=== PATIENT | female | born 1930 | race Caucasian/White ===

== ENCOUNTER 2017-12-23 12:34 | Observation (INO) ==
[2017-12-23 17:47] LABS: Baso # (Auto) 0.1 th/mm3 (0.0-0.2); Baso % (Auto) 0.6 % (0.0-2.0); Eos # (Auto) 0.1 th/mm3 (0.0-0.4); Eos % (Auto) 0.7 % (0.0-4.0); Hematocrit 42.2 % (35.0-46.0); Hemoglobin 14.1 gm/dL (11.6-15.3); Lymph # (Auto) 1.3 th/mm3 (1.0-4.8); Lymph % (Auto) 14.2 % (9.0-44.0); Mean Corpuscular HGB Conc 33.4 % (32.0-36.0); Mean Corpuscular Hemoglobin 29.9 pg (27.0-34.0); Mean Corpuscular Volume 89.6 fL (80.0-100.0); Mean Platelet Volume 11.2 fL (7.0-11.0); Mono # (Auto) 0.8 th/mm3 (0.0-0.9); Mono % (Auto) 8.6 % (0.0-8.0); Neut # (Auto) 6.9 th/mm3 (1.8-7.7); Neut % (Auto) 75.9 % (16.0-70.0); Platelet Count 173 th/mm3 (150-450); Red Blood Count 4.72 mil/mm3 (4.00-5.30); Red Cell Distribution Width 15.1 % (11.6-17.2)
[2017-12-23] MEDS ORDERED: Diatrizoate Meglum/Diatrizoate Sod Liq 9 ML UDC ONE (17:52)
[2017-12-23 18:01] LABS: Alkaline Phosphatase 104 U/L (45-117); Total Protein 8.2 g/dL (6.4-8.2)
[2017-12-23 18:05] LABS: Activated Partial Thrombo Time 43.7 sec (24.3-30.1); Alanine Aminotransferase 22 U/L (10-53); Albumin 4.4 g/dL (3.4-5.0); Anion Gap 10 meq/L (5-15); Aspartate Aminotransferase 43 U/L (15-37); Blood Urea Nitrogen 24 mg/dL (7-18); Calcium 9.8 mg/dL (8.5-10.1); Carbon Dioxide 33.9 meq/L (21.0-32.0); Chloride 94 meq/L (98-107); Glomerular Filtration Rate 45 mL/min (>89); Glucose,Random 99 mg/dL (74-106); INR 2.8 Ratio; Lipase 227 U/L (73-393); Potassium 3.2 meq/L (3.5-5.1); Prothrombin Time 28.1 sec (9.8-11.6); Sodium 138 meq/L (136-145)
[2017-12-23 18:14] LABS: Bacteria,Urine Moderate /hpf; Bilirubin,Urine Negative (Negative); Clarity,Urine Hazy (Clear); Color,Urine Yellow (Yellw/Straw); Glucose,Urine (UA) Negative (Negative); Leukocyte Esterase,Urine Moderate (Negative); Nitrite,Urine Negative (Negative); Specific Gravity,Urine 1.011 (1.002-1.035); Squamous Epithelial Cell,Urine <1 /hpf (0-5)
[2017-12-23] MEDS ORDERED: Diatrizoate Meglum/Diatrizoate Sod Liq 9 ML UDC PO ONE (18:15)
--- NOTE | 2017-12-23 18:44 | ED ---
HPI General Chief Complaint: Abdominal Pain Stated Complaint: Medical Time Seen by Provider: 12/23/17 16:34 Source: patient, family and old records reviewed Mode of arrival: ambulatory Limitations: no limitations History of Present Illness HPI narrative: An 87-year-old female with multiple medical problems including coronary artery disease COPD UTI hypertension atrial fibrillation presenting to the emergency department after she went to the clinic to have her Coumadin checked and was found to be bloated. The patient says he has been having abdominal discomfort the past couple of days and when she moves her pain as a 9 out of 10 right now she is pain-free. She denies any nausea vomiting or diarrhea. MD complaint: abdominal pain Onset (ago): day(s) (2) Pain Consistency: intermittent Location: diffuse Severity: severe Severity scale (1-10): 9 Quality: cramping Radiation: none Migration to: no migration Relieving factors: nothing Exacerbating factors: movement Context: foreign travel Related Data Home Medications Medication Instructions Recorded Confirmed atenolol 50 mg PO BID 12/23/17 12/24/17 lorazepam 0.5 mg PO DAILY 12/23/17 12/23/17 lovastatin 40 mg PO DAILY 12/23/17 12/23/17 omeprazole 20 mg PO DAILY 12/23/17 12/23/17 potassium chloride [K-Tab] 20 meq PO BID 12/23/17 12/23/17 triamterene-hydrochlorothiazid 1 tab PO DAILY 12/23/17 12/23/17 warfarin 1 mg PO TUTHSA 12/23/17 12/24/17 warfarin 2 mg PO MOWEFR 12/23/17 12/24/17 warfarin 0.5 mg PO FRANZ 12/24/17 12/24/17 Allergies Allergy/AdvReac Type Severity Reaction Status Date / Time alendronate sodium Allergy Abdominal Verified 12/23/17 17:02 [From Fosamax] Pain codeine Allergy Itching, Verified 12/23/17 17:02 Generalized latex Allergy Blister Verified 12/23/17 17:02 morphine Allergy Hallucinati Verified 12/23/17 17:02 ons Penicillins AdvReac Rash, Verified 12/23/17 17:02 Generalized Review of Systems ROS: all other systems reviewed are negative [facility] Medical History Medical History Angina pectoris (Acute) Anxiety (Acute) Atrial fibrillation (Acute) CKD (chronic kidney disease) (Acute) COPD (chronic obstructive pulmonary disease) (Acute) Cataract (Acute) GERD (gastroesophageal reflux disease) (Acute) Hiatal hernia (Acute) Hyperlipidemia (Acute) Hypertension (Acute) Hypothyroidism (Acute) Myocardial infarction (Acute) Osteoporosis (Acute) Tortuous aorta (Acute) UTI (urinary tract infection) (Acute) Varicose veins of both lower extremities (Acute) Social History Social History Substance History: No History of Abuse Second Hand Smoke Exposure: No Smoking Status: Never smoker How Often Do You Have a Drink Containing Alcohol: Never Recent Travel in [facility] within the Last 8 Weeks: No Recent Out of Country Travel within the Last 8 Weeks: No Immunization History Tetanus Immunization: <5 Years Hx Influenza Vaccine This Season: No Exam Narrative Exam Narrative: GENERAL: Alert and oriented in no distress SKIN: Focused skin assessment warm/dry. HEAD: Atraumatic. Normocephalic. EYES: Pupils equal and round. No scleral icterus. No injection or drainage. ENT: No nasal bleeding or discharge. Mucous membranes pink and moist. NECK: Trachea midline. No JVD. CARDIOVASCULAR: Regular rate and rhythm. No murmur appreciated. RESPIRATORY: No accessory muscle use. Clear to auscultation. Breath sounds equal bilaterally. GASTROINTESTINAL: No hepatosplenomegaly.Abdomen soft with mild distention. Tympany present. Mild tenderness to palpation in the suprapubic area. MUSCULOSKELETAL: No obvious deformities. No clubbing. No cyanosis. No edema. NEUROLOGICAL: Awake and alert. No obvious cranial nerve deficits. Motor grossly within normal limits. Normal speech. PSYCHIATRIC: Appropriate mood and affect; insight and judgment normal. Course Hospital Course: Patient hydrated in the ED was given Rocephin for presumptive UTI. She had a CT of the abdomen and pelvis Reevaluation(s) Reevaluation #1: Comfortably no distress alert and oriented with stable vitals. Time: 18:45 Reevaluation #2: Patient nondistressed family at bedside notified that she has a urinary tract infection she will be going to the CT suite soon. Time: 19:01 Initial Documented Vital Signs Temperature 98.1 F 12/23/17 12:45 Pulse Rate 98 H 12/23/17 12:45 Respiratory Rate 18 12/23/17 12:45 Blood Pressure 148/110 H 12/23/17 12:45 Pulse Oximetry 98 12/23/17 12:45 Last Documented Vital Signs Temperature 97.5 F L 12/24/17 11:21 Pulse Rate 88 12/24/17 11:21 Respiratory Rate 18 12/24/17 11:21 Blood Pressure 153/68 H 12/24/17 11:21 Pulse Oximetry 89 L 12/24/17 11:21 Sign Out Sign Out Data: Patient Sign Out occurred on 12/23/17 at 21:10. Patient's care was discussed, and care was transferred from Roque Dunne DO to Mari Dasilva MD. Sign Out Comment: Patient has a CT abdomen and pelvis with full contrast pending at this time. She does have a UTI and elevated lactate. CARE transfer to oncoming physician Last updated by Roque Dunne DO at 12/23/17 19:35 Post-Handoff Eval: Accepted in transfer of care from Dr. Dunne for follow-up of pending CT and patient disposition Medical Decision Making MDM Narrative Medical decision making narrative: Patient with urinary tract infection for which she was started on Rocephin. We will to have a CT pending for possible obstruction she was she was distended with air-fluid levels in the previous facility. He does have an elevated lactate however her blood pressure and heart rate is stable at this time. No leukocytosis or fever. Concern for mesenteric ischemia we did obtain a CT with IV CT abdomen pelvis no acute intra-abdominal pelvic process; urinalysis abnormal consistent with UTI; renal insufficiency; mild hypokalemia Discussed with DR Arrington --OBS Medical Screen Exam Complete: Yes Emergency Medical Condition: Yes Lab Data Lab results reviewed: Yes I reviewed the patient's lab results. Result diagrams: 12/23/17 17:20 12/24/17 06:40 Lab Results 12/23/17 12/23/17 12/23/17 Range/Units 17:20 17:20 17:20 WBC 9.0 (4.0-11.0) th/mm3 RBC 4.72 (4.00-5.30) mil/mm3 Hgb 14.1 (11.6-15.3) gm/dL Hct 42.2 (35.0-46.0) % MCV 89.6 (80.0-100.0) fL MCH 29.9 (27.0-34.0) pg MCHC 33.4 (32.0-36.0) % RDW 15.1 (11.6-17.2) % Plt Count 173 (150-450) th/mm3 MPV 11.2 H (7.0-11.0) fL Neut % (Auto) 75.9 H (16.0-70.0) % Lymph % (Auto) 14.2 (9.0-44.0) % Garrett % (Auto) 8.6 H (0.0-8.0) % Eos % (Auto) 0.7 (0.0-4.0) % Baso % (Auto) 0.6 (0.0-2.0) % Neut # (Auto) 6.9 (1.8-7.7) th/mm3 Lymph # (Auto) 1.3 (1.0-4.8) th/mm3 Garrett # (Auto) 0.8 (0.0-0.9) th/mm3 Eos # (Auto) 0.1 (0.0-0.4) th/mm3 Baso # (Auto) 0.1 (0.0-0.2) th/mm3 WBC Differential . Differential Comment Auto diff final PT 28.1 H (9.8-11.6) sec INR 2.8 Ratio APTT 43.7 H (24.3-30.1) sec Sodium (136-145) meq/L Potassium (3.5-5.1) meq/L Chloride (98-107) meq/L Carbon Dioxide (21.0-32.0) meq/L Anion Gap (5-15) meq/L BUN (7-18) mg/dL Creatinine (0.50-1.00) mg/dL Estimated GFR (>89) mL/min Random Glucose (74-106) mg/dL Lactic Acid 2.2 H (0.4-2.0) mmol/L Calcium (8.5-10.1) mg/dL Total Bilirubin (0.2-1.0) mg/dL Direct Bilirubin (0.0-0.2) mg/dL Indirect Bilirubin (0.0-0.8) mg/dL AST (15-37) U/L ALT (10-53) U/L Alkaline Phosphatase (45-117) U/L Total Protein (6.4-8.2) g/dL Albumin (3.4-5.0) g/dL Lipase (73-393) U/L Urine Color (Yellw/Straw) Urine Clarity (Clear) Urine pH (5.0-8.5) Ur Specific Harvey (1.002-1.035) Urine Protein (Neg-Trace) mg/dL Urine Glucose (UA) (Negative) mg/dL Urine Ketones (Negative) mg/dL Urine Occult Blood (Negative) Urine Nitrate (Negative) Urine Bilirubin (Negative) Urine Urobilinogen (Less than 2) mg/dL Ur Leukocyte Esterase (Negative) Urine RBC (0-3) /hpf Urine WBC (0-5) /hpf Ur Squamous Epith Cells (0-5) /hpf Urine Bacteria (None) /hpf Micro UA Comment Ur Microscopic Review Urine Culture Comments 12/23/17 12/23/17 12/24/17 Range/Units 17:20 17:45 06:40 WBC (4.0-11.0) th/mm3 RBC (4.00-5.30) mil/mm3 Hgb (11.6-15.3) gm/dL Hct (35.0-46.0) % MCV (80.0-100.0) fL MCH (27.0-34.0) pg MCHC (32.0-36.0) % RDW (11.6-17.2) % Plt Count (150-450) th/mm3 MPV (7.0-11.0) fL Neut % (Auto) (16.0-70.0) % Lymph % (Auto) (9.0-44.0) % Garrett % (Auto) (0.0-8.0) % Eos % (Auto) (0.0-4.0) % Baso % (Auto) (0.0-2.0) % Neut # (Auto) (1.8-7.7) th/mm3 Lymph # (Auto) (1.0-4.8) th/mm3 Garrett # (Auto) (0.0-0.9) th/mm3 Eos # (Auto) (0.0-0.4) th/mm3 Baso # (Auto) (0.0-0.2) th/mm3 WBC Differential Differential Comment PT 23.5 H (9.8-11.6) sec INR 2.3 Ratio APTT (24.3-30.1) sec Sodium 138 (136-145) meq/L Potassium 3.2 L (3.5-5.1) meq/L Chloride 94 L (98-107) meq/L Carbon Dioxide 33.9 H (21.0-32.0) meq/L Anion Gap 10 (5-15) meq/L BUN 24 H (7-18) mg/dL Creatinine 1.14 H (0.50-1.00) mg/dL Estimated GFR 45 L (>89) mL/min Random Glucose 99 (74-106) mg/dL Lactic Acid (0.4-2.0) mmol/L Calcium 9.8 (8.5-10.1) mg/dL Total Bilirubin 1.4 H (0.2-1.0) mg/dL Direct Bilirubin (0.0-0.2) mg/dL Indirect Bilirubin (0.0-0.8) mg/dL AST 43 H (15-37) U/L ALT 22 (10-53) U/L Alkaline Phosphatase 104 (45-117) U/L Total Protein 8.2 (6.4-8.2) g/dL Albumin 4.4 (3.4-5.0) g/dL Lipase 227 (73-393) U/L Urine Color Yellow (Yellw/Straw) Urine Clarity Hazy H (Clear) Urine pH 7.0 (5.0-8.5) Ur Specific Harvey 1.011 (1.002-1.035) Urine Protein Negative (Neg-Trace) mg/dL Urine Glucose (UA) Negative (Negative) mg/dL Urine Ketones Trace H (Negative) mg/dL Urine Occult Blood Negative (Negative) Urine Nitrate Negative (Negative) Urine Bilirubin Negative (Negative) Urine Urobilinogen Less than 2 (Less than 2) mg/dL Ur Leukocyte Esterase Moderate H (Negative) Urine RBC 1 (0-3) /hpf Urine WBC 53 H (0-5) /hpf Ur Squamous Epith Cells <1 (0-5) /hpf Urine Bacteria Moderate H (None) /hpf Micro UA Comment Culture indicated Ur Microscopic Review Not Reportable Urine Culture Comments Culture indicated 12/24/17 Range/Units 06:40 WBC (4.0-11.0) th/mm3 RBC (4.00-5.30) mil/mm3 Hgb (11.6-15.3) gm/dL Hct (35.0-46.0) % MCV (80.0-100.0) fL MCH (27.0-34.0) pg MCHC (32.0-36.0) % RDW (11.6-17.2) % Plt Count (150-450) th/mm3 MPV (7.0-11.0) fL Neut % (Auto) (16.0-70.0) % Lymph % (Auto) (9.0-44.0) % Garrett % (Auto) (0.0-8.0) % Eos % (Auto) (0.0-4.0) % Baso % (Auto) (0.0-2.0) % Neut # (Auto) (1.8-7.7) th/mm3 Lymph # (Auto) (1.0-4.8) th/mm3 Garrett # (Auto) (0.0-0.9) th/mm3 Eos # (Auto) (0.0-0.4) th/mm3 Baso # (Auto) (0.0-0.2) th/mm3 WBC Differential Differential Comment PT (9.8-11.6) sec INR Ratio APTT (24.3-30.1) sec Sodium 139 (136-145) meq/L Potassium 3.1 L (3.5-5.1) meq/L Chloride 98 (98-107) meq/L Carbon Dioxide 30.2 (21.0-32.0) meq/L Anion Gap 11 (5-15) meq/L BUN 18 (7-18) mg/dL Creatinine 1.00 (0.50-1.00) mg/dL Estimated GFR 52 L (>89) mL/min Random Glucose 100 (74-106) mg/dL Lactic Acid (0.4-2.0) mmol/L Calcium 9.1 (8.5-10.1) mg/dL Total Bilirubin 1.6 H (0.2-1.0) mg/dL Direct Bilirubin 0.5 H (0.0-0.2) mg/dL Indirect Bilirubin 1.1 H (0.0-0.8) mg/dL AST 33 (15-37) U/L ALT 18 (10-53) U/L Alkaline Phosphatase 90 (45-117) U/L Total Protein 7.1 D (6.4-8.2) g/dL Albumin 3.8 D (3.4-5.0) g/dL Lipase (73-393) U/L Urine Color (Yellw/Straw) Urine Clarity (Clear) Urine pH (5.0-8.5) Ur Specific Harvey (1.002-1.035) Urine Protein (Neg-Trace) mg/dL Urine Glucose (UA) (Negative) mg/dL Urine Ketones (Negative) mg/dL Urine Occult Blood (Negative) Urine Nitrate (Negative) Urine Bilirubin (Negative) Urine Urobilinogen (Less than 2) mg/dL Ur Leukocyte Esterase (Negative) Urine RBC (0-3) /hpf Urine WBC (0-5) /hpf Ur Squamous Epith Cells (0-5) /hpf Urine Bacteria (None) /hpf Micro UA Comment Ur Microscopic Review Urine Culture Comments Imaging Data Radiologist's impression: Abdomen/Pelvis CT 12/23/17 17:02 CONCLUSION: 1. No acute inflammatory process. 2. Cholelithiasis. 3. Pelvic congestion syndrome in the pelvis. 4. Compression deformities T11 and L1 likely old. Gallbladder Ultrasound 12/23/17 21:23 CONCLUSION: 1. Cholelithiasis. 2. Echogenic right kidney characteristic of medical renal disease. 3. Nonvisualization of pancreas. Abdomen X-Ray 12/24/17 06:00 CONCLUSION: Nonspecific, benign intestinal gas pattern ECG Data EKG Prior to Arrival: No Prior ECG tracings: available for review Interpretation: A. fib 83 bpm aberrant conduction and nonspecific ST-T wave abnormalities occasional PVCs. QTc 415 left axis deviation Discharge Plan Discharge Disposition Patient Disposition: 30 Still Patient Discharge Condition Condition: Stable Discharge Order Discharge Orders: Discharge Order (Routine); Ordered 12/24/17 Ordered By: Yessica Lake Discharge Details Anticipated Discharge Date: 12/24/17 Discharge Comment: Followup with your PCP, Dr. Carter, next Thursday at previously scheduled appt. Diagnosis: Acute UTI, Sepsis, Abdominal pain, Acute renal insufficiency Physicians Team ED Provider: Mari Dasilva Primary Care Provider: Ciara Carter Attending Provider: Tawanda Harris Other Providers: [facility],Agency Status ED Status: Left Department Discharge Information Discharge Date/Time: 12/23/17 23:38
[2017-12-24 07:09] LABS: INR 2.3 Ratio; Prothrombin Time 23.5 sec (9.8-11.6)
[2017-12-24 07:36] LABS: Albumin 3.8 g/dL (3.4-5.0); Calcium 9.1 mg/dL (8.5-10.1); Carbon Dioxide 30.2 meq/L (21.0-32.0); Potassium 3.1 meq/L (3.5-5.1); Total Protein 7.1 g/dL (6.4-8.2)
[2017-12-24] MEDS ORDERED: Simethicone 125 MG Chew Tablet PO SCH (09:00)
[2017-12-24] MEDS ORDERED: LORazepam 0.5 MG Tablet PO SCH (09:00)
[2017-12-24] MEDS ORDERED: Pantoprazole Sodium 20 MG DR Tablet PO SCH (09:00)
[2017-12-24] MEDS ORDERED: Levofloxacin 500 mg Premix Inj 500 MG/100 ML PIGGYBACK IV.SIG SCH (09:00)
[2017-12-24] MEDS ORDERED: Atenolol 50 MG Tablet PO SCH (09:00)
--- NOTE | 2017-12-24 19:44 | ECG ---
Date Performed: 12/23/2017 Time Performed: 17:19:20 PTAGE: 87 years EKG: ATRIAL FIBRILLATION WITH ABERRANT CONDUCTION OR VENTRICULAR PREMATURE COMPLEXES POSSIBLE AN TERIOR MYOCARDIAL INFARCTION Compared to previous tracing, atrial fibrillation is new. Mild nonspecif ic ST changes ABNORMAL RHYTHM ECG PREVIOUS TRACING : 12/10/2004 15.23 DOCTOR: [place] Narayan Interpretating Date/Time 12/24/2017 19:42:57
[2017-12-26] MEDS ORDERED: Levofloxacin 500 mg Premix Inj 500 MG/100 ML PIGGYBACK IV.SIG SCH (09:00)
== END 2017-12-24 15:10 | disposition home health service (06) ==
LOC: NEPC 12:34 → NEDA 12:34 → NEPGCP 23:42
PROVIDERS: ADMIT Hospitalist; ATTEND Hospitalist
DX: E78.5 Hyperlipidemia, unspecified; N39.0 Urinary tract infection, site not specified; N94.89 Other specified conditions associated with female genital organs and menstrual cycle; M19.90 Unspecified osteoarthritis, unspecified site; Z82.3 Family history of stroke; I25.10 Atherosclerotic heart disease of native coronary artery without angina pectoris; I25.2 Old myocardial infarction; I83.93 Asymptomatic varicose veins of bilateral lower extremities; F41.9 Anxiety disorder, unspecified; B95.2 Enterococcus as the cause of diseases classified elsewhere; I48.91 Unspecified atrial fibrillation; M81.0 Age-related osteoporosis without current pathological fracture; Z91.040 Latex allergy status; E87.6 Hypokalemia; Z82.49 Family history of ischemic heart disease and other diseases of the circulatory system; N18.3 Chronic kidney disease, stage 3 (moderate); K80.20 Calculus of gallbladder without cholecystitis without obstruction; E03.9 Hypothyroidism, unspecified; K44.9 Diaphragmatic hernia without obstruction or gangrene; N17.9 Acute kidney failure, unspecified; I12.9 Hypertensive chronic kidney disease with stage 1 through stage 4 chronic kidney disease, or unspecified chronic kidney disease; Z79.01 Long term (current) use of anticoagulants; Z88.5 Allergy status to narcotic agent; K21.9 Gastro-esophageal reflux disease without esophagitis; A41.9 Sepsis, unspecified organism; J44.9 Chronic obstructive pulmonary disease, unspecified